=== PATIENT | male | born 1950 | race Caucasian/White ===

== ENCOUNTER 2020-01-25 16:50 | Observation (INO) | payer OTHER ==
[~2020-01-25] VITALS: Ht 170.2 cm; Wt 106.7 kg
[2020-01-25 18:36] LABS: Source, Urine Catheter
[2020-01-25 18:39] LABS: BASOPHILS PERCENT AUTO 1 % (0-2); EOSINOPHILS ABSOLUTE AUTO 0.42 K/mm3 (0.00-0.68); EOSINOPHILS PERCENT AUTO 5 % (0-6); Hematocrit 42.1 % (37.0-53.0); Hemoglobin 14.3 g/dL (13.5-17.5); IMMATURE GRAN ABSOLUTE AUTO 0.05 K/mm3 (0.00-0.10); IMMATURE GRAN PERCENT AUTO 1 % (0-1); LYMPHOCYTES ABSOLUTE AUTO 2.38 K/mm3 (0.84-5.20); LYMPHOCYTES PERCENT AUTO 28 % (21-46); MONOCYTES ABSOLUTE AUTO 0.69 K/mm3 (0.16-1.47); MONOCYTES PERCENT AUTO 8 % (4-13); Mean Corpuscular HGB 31.8 pg (26.0-34.0); Mean Corpuscular Volume 94 fL (80-100); Mean Platelet Volume 9.7 fL (9.1-12.4); NEUTROPHILS ABSOLUTE AUTO 5.03 K/mm3 (1.96-9.15); NEUTROPHILS PERCENT AUTO 58 % (41-73); Platelet Count 151 K/mm3 (150-400); RDW Coefficient Variation 13.1 % (11.7-14.2); RDW Standard Deviation 44.9 fL (35.1-46.3); White Blood Cell Count 8.67 K/mm3 (4.00-11.30)
[2020-01-25 18:51] LABS: Appearance, Urine Clear (Clear); Bilirubin, Urine Neg (Neg); Blood, Urine 2+ (Neg); Color, Urine Yellow (P-Yellow); Glucose Qualitative, Urine Neg (Neg); Ketones, Urine Neg (Neg); Leukocyte Esterase, Urine Neg (Neg); Nitrite, Urine Neg (Neg); Protein, Urine 2+ (Neg); Urobilinogen, Urine NORM (Normal)
[2020-01-25 19:04] LABS: Bacteria Rare /hpf; Red Blood Cells, Urine Not Seen /hpf (0-2); Squamous Epithelial Cells Not Seen /hpf (Few); White Blood Cells, Urine Rare /hpf (0-5)
[2020-01-25 19:07] LABS: Alanine Aminotransfer (ALT/SGP 31 U/L (12-78); Albumin, Blood 2.8 g/dL (3.4-5.0); Albumin/Globulin Ratio 0.7 (0.8-1.8); Alk Phos 127 U/L (50-136); Anion Gap 5 mmol/L (6-16); Aspartate Aminotrans (AST/SGOT 15 U/L (12-37); Bilirubin, Total 0.5 mg/dL (0.1-1.0); Blood Urea Nitrogen 25 mg/dL (8-24); Bun/Creatinine Ratio 23.1 (12.0-20.0); CO2, Blood 28 mmol/L (21-32); Calcium, Blood 8.7 mg/dL (8.5-10.1); Chloride, Blood 108 mmol/L (98-108); Creatinine, Blood 1.08 mg/dL (0.60-1.20); Ethanol (Alcohol), Blood, Med <3 mg/dL; Free Thyroxine 1.37 ng/dL (0.70-1.60); Glomerular Filtration Rate >60 (60-); Glucose, Blood 135 mg/dL (70-99); Potassium, Blood 3.8 mmol/L (3.5-5.5); Sodium, Blood 141 mmol/L (136-145); Total Protein, Blood 6.8 g/dL (6.4-8.2); Troponin I <0.015 ng/mL (0.000-0.040)
[2020-01-25] MEDS ORDERED: ASCO500 PO (19:21)
[2020-01-25] MEDS ORDERED: Flovent 220 Ora12 GM INH (19:22)
[2020-01-25] MEDS ORDERED: RESVERATROL50 MG (19:22)
[2020-01-25] MEDS ORDERED: METO50 PO (19:22)
[2020-01-25] MEDS ORDERED: BUSP5 PO (19:23)
[2020-01-25] MEDS ORDERED: DOCU100 PO (19:23)
[2020-01-25] MEDS ORDERED: SITA100T2 PO (19:23)
[2020-01-25] MEDS ORDERED: METO5A PO (19:23)
[2020-01-25] MEDS ORDERED: PANT40 PO (19:24)
[2020-01-25] MEDS ORDERED: ATORVASTATIN CA40 M1 PO (19:24)
[2020-01-25] MEDS ORDERED: FURO20 PO (19:24)
[2020-01-25] MEDS ORDERED: TRAZ50 PO (19:24)
[2020-01-25] MEDS ORDERED: NOVOLOG FL100 UNIT/3 SC (19:25)
[2020-01-25] MEDS ORDERED: NYSTOP15 GM TOP (19:25)
[2020-01-25] MEDS ORDERED: Aspirin EC81 MG PO (19:25)
[2020-01-25] MEDS ORDERED: LEVSOD100 PO (19:26)
[2020-01-25] MEDS ORDERED: LISI20 PO (19:26)
[2020-01-25] MEDS ORDERED: AMLO5 PO (19:26)
[2020-01-25] MEDS ORDERED: CITA20 PO (19:26)
[2020-01-25] MEDS ORDERED: BASAGLAR K100 UNIT/1 SC (21:11)
[2020-01-25] MEDS ORDERED: SITA100T2 (21:16)
[2020-01-25] MEDS ORDERED: ABAT250V (21:16)
--- NOTE | 2020-01-25 21:24 | NUR ---
PATIENT ADMITTED TO THE FLOOR FOR WEAKNESS X 1 MONTH. CAREGIVERS REPORT THAT HE NEEDS TO HAVE SNF HE HAS GOTTEN TO WEAK FOR THEM. JESSICA IS AOX3 BUT DOES HAVE A SLIGHT DELAY IN RESPONSES OR MEMORY. 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 HE HAS LEFT SIDED WEAKNESS AND IS UNABLE TO USE LEFT ARM OR LEG. LUNG SOUNDS ARE COURSE AND DIMINISHED IN THE BASES. COUGH IS OCCATIONAL BUT NO PRODUCTION. HR SINUS, NO CHEST PAIN OR PALPITATIONS. IV FLUSHED. HAS DRY FLACKY SKIN, ABRASION TO THE RIGHT KNEE, REDENSS TO BOTTOM AND GROIN, SMALL OPEN PRESSURE WOUND ON THE LEFT POSTERIOR THIGH. RN NURSERY CLEASED GROIN AND APPLIED NEW BABY POWDER. IV FLUIDS WERE STARTED. PICTURES TAKEN FOR CHART. DENIED FLU SHOT. WILL CONTINUE TO MONITOR THROUGHOUT THE NIGHT. CALL LIGHT IN REACH.
[2020-01-25] MEDS ORDERED: BISA10S (21:26)
[2020-01-25] MEDS ORDERED: ALBU90OI INH (21:32)
[2020-01-25] MEDS ORDERED: ACET325 PO (21:32)
[2020-01-26 05:43] LABS: BASOPHILS ABSOLUTE AUTO 0.06 K/mm3 (0.00-0.23); BASOPHILS PERCENT AUTO 1 % (0-2); EOSINOPHILS ABSOLUTE AUTO 0.37 K/mm3 (0.00-0.68); EOSINOPHILS PERCENT AUTO 5 % (0-6); Hematocrit 41.3 % (37.0-53.0); Hemoglobin 13.7 g/dL (13.5-17.5); IMMATURE GRAN ABSOLUTE AUTO 0.06 K/mm3 (0.00-0.10); IMMATURE GRAN PERCENT AUTO 1 % (0-1); LYMPHOCYTES ABSOLUTE AUTO 2.14 K/mm3 (0.84-5.20); LYMPHOCYTES PERCENT AUTO 30 % (21-46); MONOCYTES ABSOLUTE AUTO 0.64 K/mm3 (0.16-1.47); MONOCYTES PERCENT AUTO 9 % (4-13); Mean Corpuscular HGB 31.1 pg (26.0-34.0); Mean Corpuscular HGB Conc 33.2 g/dL (31.5-36.5); Mean Corpuscular Volume 94 fL (80-100); Mean Platelet Volume 9.7 fL (9.1-12.4); NEUTROPHILS ABSOLUTE AUTO 3.77 K/mm3 (1.96-9.15); NEUTROPHILS PERCENT AUTO 53 % (41-73); Platelet Count 121 K/mm3 (150-400); RDW Coefficient Variation 13.1 % (11.7-14.2); RDW Standard Deviation 44.9 fL (35.1-46.3); Red Blood Cell Count 4.41 M/mm3 (4.30-5.90); White Blood Cell Count 7.04 K/mm3 (4.00-11.30)
[2020-01-26 06:07] LABS: Alanine Aminotransfer (ALT/SGP 26 U/L (12-78); Albumin, Blood 2.6 g/dL (3.4-5.0); Albumin/Globulin Ratio 0.7 (0.8-1.8); Alk Phos 124 U/L (50-136); Anion Gap 5 mmol/L (6-16); Aspartate Aminotrans (AST/SGOT 14 U/L (12-37); Bilirubin, Total 0.7 mg/dL (0.1-1.0); Blood Urea Nitrogen 22 mg/dL (8-24); Bun/Creatinine Ratio 23.6 (12.0-20.0); CO2, Blood 27 mmol/L (21-32); Calcium, Blood 8.3 mg/dL (8.5-10.1); Chloride, Blood 111 mmol/L (98-108); Creatinine, Blood 0.93 mg/dL (0.60-1.20); Globulin, Blood 3.8 g/dL (2.2-4.0); Glomerular Filtration Rate >60 (60-); Glucose, Blood 101 mg/dL (70-99); Potassium, Blood 3.4 mmol/L (3.5-5.5); Sodium, Blood 143 mmol/L (136-145); Total Protein, Blood 6.4 g/dL (6.4-8.2)
--- NOTE | 2020-01-26 06:25 | NUR ---
SHIFT SUMMARY: JESSICA WAS ADMITTED TO THE FLOOR FOR WEAKNESS FOR THE PAST MONTH. AOX3 BUT HAS A SLIGHT MENTAL DELAY DUE TO MULTIPLE CVA'S. LEFT SIDE IS FLACCID, DOES USE WC TO GET AROUND. INCONTIENT OF URINE AND BOWEL, BUT DOES TRY TO USE URNIAL WHEN CAN. SKIN HAS ABRASION TO RIGHT KNEE, SHALLOW AND PINK WOUND BED. PRESSURE ULCER DIME SIZE TO LEFT POSTERIOR UPPER THIGH, HEALING, SHALLOW. BOTTOM AND GROIN RED, NEEDS NYSTATIN POWDER. LUNG SOUNDS ARE COURSE, WITH OCCATIONAL COUGH, NO PRODUCTION. IV FLUIDS STARTED AND INFUSING AT 75ML/HR. NO PAIN NOTED. CAREGIVERS WANT HIM PLACED IN SNF IT HAS BEEN DIFFICULT FOR THEM TO CARE FOR HIM. BRUISING ALSO NOTED ACROSS BOTH FEET TOES. SLEPT WELL OFF AND ON THROUGHOUT THE NIGHT. WILL REPORT TO DAY SHIFT. CALL LIGHT IN REACH.
--- NOTE | 2020-01-26 18:32 | NUR ---
SHIFT SUMMARY PT UP IN W/C MUCH OF THE DAY. P.T. AND O.T. IN TO SEE HIM THIS MORNING. CAREGIVER CONCERNED ABOUT MAKING SURE PT WITH BE ABLE TO GO TO REHAB. SPOKE WITH OMAIRA CORDERO AND SHE REPORTS PT WILL BE ABLE TO GO TO REHAB. PT WITH NO CHANGE THROUGH THE DAY.
--- NOTE | 2020-01-26 20:00 | NUR ---
ASSUMED CARE. JESSICA IS DOING WELL TODAY. LUNGS ARE CLEAR, HR NORMAL. REDNESS IN GROIN AND BOTTOM IS LOOKING BETTER. NYSTATIN APPLIED AFTER CLEANSING. USING URINAL, VOIDING SMALL AMOUNTS. DENIES ANY PAIN OR DISCOMFORT. DENIES ANY NEEDS. CALL LIGHT IN REACH. WILL CONTINUE TO MONITOR.
--- NOTE | 2020-01-27 04:32 | NUR ---
SHIFT SUMMARY: JESSICA HAS HAD A GOOD NIGHT, SLEPT WELL OFF AND ON. HAS BEEN CONTIENT MOST OF SHIFT USING THE URINAL. NO BM TONIGHT. GROIN SLOWLY IMPROVING WITH NYSTATIN AND KEEPING IT CLEAN. VS WNL, AFEBRILE. BLOOD SUGAR 200. NO ACUTE CHANGES TO NOTE THIS SHIFT. CALL LIGHT REMAINS IN REACH.
--- NOTE | 2020-01-27 16:48 | NUR ---
RE[facility] TO [facility]. DISCHARGED TO [facility] VIA W/C.
== END 2020-01-27 16:48 ==
LOC: EDBD 16:50 → ER 16:50 → MEDS 16:51 → ER 19:22 → MEDS 20:35
PROVIDERS: Emergency Medicine; ADMIT Internal Medicine
DX: R53.81 Other malaise (principal); I69.354 Hemiplegia and hemiparesis following cerebral infarction affecting left non-dominant side; I10 Essential (primary) hypertension; E78.5 Hyperlipidemia, unspecified; E03.9 Hypothyroidism, unspecified; E11.9 Type 2 diabetes mellitus without complications; Z20.828 Contact with and (suspected) exposure to other viral communicable diseases; Z79.82 Long term (current) use of aspirin; Z79.899 Other long term (current) drug therapy; Z79.4 Long term (current) use of insulin
CPT/HCPCS: 70450; 71045; 80053; 81001; 82140; 82947; 83880; 84439; 84443; 84481; 84484; 85025; 93005; 93010; 94640; 94760; 96372; 97162; 97166; 97530; 97535; 99285-25; A9270; A9270-GY; G0378; G0480; J1650; J7030; U0003